=== PATIENT | male | born 1985 | race Caucasian/White ===

== ENCOUNTER → 2016-07-02 | Day surgery (SDC) | payer SELFPAY ==
[~2016-07-02] VITALS: Ht 182.9 cm; Wt 117.0 kg
[~2016-07-02] MED LIST: *MEPERIDINE 25 MG INJ VIAL PERIprocedural Use ONLY ONE; ACETAMINOPHEN 1000 MG/100 ML VIAL IV ONE; CEPH-459 PO; DO NOT ADM ANY ANTICOAGULANT DRUGS XX PRN; FAMOTIDINE 20 MG/2 ML VIAL ONE; HYDROmorphone HCL PF 2 MG/ML VIAL ONE; INSULIN HUMAN REGULAR 1,000 UNITS/10 ML VIAL SQ PRN; LACTATED RINGER'S 1000 ML INJ 1,000 ML IV ONE; LACTATED RINGER'S 1000 ML IV SCH; METH40TA PO; METOPROLOL TARTRATE 25 MG TAB PO PRN; MIDAZOLAM HCL 2 MG/2 ML VIAL ONE; NEOMYCIN/POLYMYXIN/BACITRACIN OINT 15 GM TUBE ONE; NEOSTIGMINE 3 MG/3 ML SYR IV ONE; ONDANSETRON HCL 4 MG/2 ML VIAL IV PUSH ONE; ONDANSETRON HCL 4 MG/2 ML VIAL IV PUSH PRN; OXYC30TA3 PO; PERC5TAB12 PO; PROPOFOL 200 MG/20 ML AMP IV ONE; SODIUM CHLORID 0.9% 500 ML IV SCH; XANA2TAB2 PO; fentaNYL CITRATE 250 MCG/5 ML AMP ONE; oxyCODONE/ACETAMINOPHEN 5 MG/325 MG TAB PO PRN
[2016-07-02 09:57] VITALS: BP 163/113; PULSE 121; RESP 16; TEMP 98; O2SAT 97
--- NOTE | 2016-07-02 10:53 | PD ---
HPI Chief Complaint: Complaint Time Seen by Provider: 10:08 Travel History International Travel<30 days: No Contact w/Intl Traveler<30days: No Traveled to known affect area: No History of Present Illness HPI This patient has had lifelong neurological difficulty. He says as an infant he had a circumcision that didn't work out quite right. He calls it a partial circumcision. The bottom half of his glans is been covered over with skin and scar tissue for life and he has always had a struggle to urinate properly. However in the last one year it is becoming progressively worse. He has not been able to urinate today other than a couple of drops. He feels like his bladder is full and distended and causing him pain. He had an appointment at [address] Horowitz, urologist but instead he came here at about 10:15 AM said he couldn't wait any longer. Symptoms severity is moderate. No alleviating factors. Duration is chronic but worse over the last couple of days PFSH Past Medical History Hx Anticoagulant Therapy: No Diabetes: No Diminished Hearing: No Musculoskeletal: Yes (BACK INJURY, CHRONIC BACK PAIN) Seizures: Yes (X 1 EPISODE; PER PT, DRUG-INDUCED) Tetanus Vaccination: > 5 Years Influenza Vaccination: No Social History Alcohol Use: No (DENIES) Tobacco Use: No (E-CIG DAILY) Substance Use: Yes (METHADONE SINCE 2013; HX OF OXYCONTIN ABUSE) Allergies-Medications (Allergen,Severity, Reaction): Coded Allergies: No Known Allergies (Verified , 07/02/16) Reported Meds & Prescriptions Reported Meds & Active Scripts Active Reported Methadone (Methadone HCl) 40 Mg Tab 40 Mg PO DAILY Review of Systems General / Constitutional: No: Fever Eyes: No: Visual changes HENT: No: Headaches Cardiovascular: No: Chest Pain or Discomfort Respiratory: No: Shortness of Breath Gastrointestinal: Positive: Abdominal Pain Genitourinary: Positive: Decreased Urinary Output, No: Dysuria Musculoskeletal: No: Pain Skin: No Rash Neurologic: No: Weakness Psychiatric: No: Depression Endocrine: No: Polydipsia Hematologic/Lymphatic: No: Easy Bruising Physical Exam Narrative GENERAL: Well-nourished, well-developed patient in no apparent distress. SKIN: Warm and dry. HEAD: Atraumatic. Normocephalic. EYES: Pupils equal and round. No scleral icterus. No injection or drainage. ENT: No nasal bleeding or discharge. Mucous membranes pink and moist. NECK: Trachea midline. No JVD. CARDIOVASCULAR: Regular rate and rhythm. No murmur appreciated. RESPIRATORY: No accessory muscle use. Clear to auscultation. Breath sounds equal bilaterally. GASTROINTESTINAL: Abdomen soft, suprapubic tenderness and distention noted. Hepatic and splenic margins not palpable. MUSCULOSKELETAL: No obvious deformities. No clubbing. No cyanosis. No edema. NEUROLOGICAL: Awake and alert. No obvious cranial nerve deficits. Motor grossly within normal limits. Normal speech. PSYCHIATRIC: Appropriate mood and affect; insight and judgment normal. : Patient has abnormality at the glans. The bottom half is covered over in skin/scar tissue. His urethra looks entirely closed. I don't even see an opening there at all. I could not even pass the tip of a Q-tip. Data Data Last Documented VS Vital Signs Date Time Temp Pulse Resp B/P Pulse Ox O2 Delivery O2 Flow Rate FiO2 07/02/16 11:08 88 16 159/88 97 Room Air 07/02/16 09:57 98.0 Orders Admit Order (Ed Use Only) (07/02/16 11:23) [facility] Medical Decision Making Medical Screen Exam Complete: Yes Emergency Medical Condition: Yes Medical Record Reviewed: Yes Differential Diagnosis Urethral stricture, scar tissue, meatus abnormality Narrative Course I have reviewed the patient's electronic medical record. I did a bedside bladder scan which reveals 645 cc of urine in the bladder. I discussed with Dr. Horowitz but he says since the patient has never seen him and did not come the office but instead went to the emergency room that I should use the on-call urologist. I placed a call to Dr. Dennison to discuss. Dr. Dennison will do the procedure in the operating room to open up the urethra and allow him to urinate. He recommends sending him to same day surgery now. He plans to let him go home after the procedure. I reviewed with the patient was agreeable. I'm planning on having the patient's parents drive him there as he is young healthy stable in general and does not need ambulance transport Diagnosis Primary Impression: Urethral stricture Qualified Code: N99.114 - Postprocedural male urethral stricture Additional Impression: Acute urinary retention Additional Instructions: Go to same day surgery directly from here Disposition: 70 TRANSFER TO OTHER FACILITY Condition: Stable Chato Mendiola MD Jul 02, 2016 10:53
[2016-07-02 11:08] VITALS: BP 159/88; PULSE 88; RESP 16; O2SAT 97
--- NOTE | 2016-07-02 12:39 | HHI.HP ---
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 Patient reports that over the past year is voiding has become progressively more difficult and recently was only able to dribble small amounts of urine at a time. He presented to the emergency room complaining of inability to urinate and with lower abdominal pain. A bladder scan was performed that demonstrated greater than 600 cc of urine within the bladder. A urology consult was placed for further management. Patient denies any other past urologic history. He denies recurrent urinary tract infections or gross hematuria. Review of Systems Constitutional: DENIES: Fever, Night Sweats Endocrine: DENIES: Heat/cold intolerance Eyes: DENIES: Blurred vision Respiratory: DENIES: Cough Cardiovascular: DENIES: Chest pain Gastrointestinal: COMPLAINS OF: Abdominal pain (lower abdomen) Musculoskeletal: DENIES: Joint pain Hematologic/lymphatic: DENIES: Bruising Neurologic: DENIES: Headache Other Remainder of systems review negative Past Family Social History Past Medical History Chronic back pain OxyContin abuse Drug induced seizure episode 1 Past Surgical History Denies Reported Medications Refer to EMR Allergies: Coded Allergies: No Known Allergies (Verified , 07/02/16) Active Ordered Medications Refer to EMR Family History Reviewed and noncontributory Social History Denies tobacco or alcohol abuse Uses E cigarettes On methadone program for history of OxyContin abuse Physical Exam Vital Signs Vital Signs Date Time Temp Pulse Resp B/P Pulse Ox O2 Delivery O2 Flow Rate FiO2 07/02/16 11:08 88 16 159/88 97 Room Air 07/02/16 09:57 98.0 121 16 163/113 97 Physical Exam GENERAL: This is a well-nourished, well-developed patient, in no apparent distress. SKIN: No rashes, ecchymoses or lesions. Cool and dry. HEAD: Atraumatic. Normocephalic. No temporal or scalp tenderness. EYES: Pupils equal round and reactive. Extraocular motions intact. No scleral icterus. No injection or drainage. ENT: Nose without bleeding, purulent drainage or septal hematoma. Throat without erythema, tonsillar hypertrophy or exudate. Uvula midline. Airway patent. NECK: Trachea midline. No JVD or lymphadenopathy. Supple, nontender, no meningeal signs. CARDIOVASCULAR: Regular rate and rhythm without murmurs, gallops, or rubs. RESPIRATORY: Clear to auscultation. Breath sounds equal bilaterally. No wheezes , rales, or rhonchi. GASTROINTESTINAL: Lower abdomen distended consistent with a full bladder. : Meatus scarred over. MUSCULOSKELETAL: Extremities without clubbing, cyanosis, or edema. No joint tenderness, effusion, or edema noted. No calf tenderness. Negative Homans sign bilaterally. NEUROLOGICAL: Awake and alert. Cranial nerves II through XII intact. Motor and sensory grossly within normal limits. Five out of 5 muscle strength in all muscle groups. Normal speech. Assessment and Plan Assessment and Plan Urologic impression: Urinary retention related to scarred an obstructing meatus. Plan: #1 keep patient nothing by mouth #2 bring the patient to the OR suite today for a meatoplasty and cystoscopic evaluation Andrea Dennison MD Jul 02, 2016 12:39
[2016-07-02 17:10] VITALS: PULSE 88; RESP 16; TEMP 98.6; O2SAT 97
[2016-07-02 17:15] VITALS: BP 138/68
--- NOTE | 2016-07-04 04:58 | MP ---
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 Apparently the patient had a circumcision performed as an it never healed up properly. The patient reports having problems urinating his whole life, and over the past year symptoms became worse. He presented to the emergency room in acute urinary retention. PREOPERATIVE DIAGNOSIS Penile deformity / urinary retention. POSTOPERATIVE DIAGNOSIS: Penile deformity / urinary retention. ATTENDING PHYSICIAN Dr. Dennison ANESTHESIA: General. PROCEDURE PERFORMED: Phalloplasty and release of glandular adhesions. COMPLICATIONS None. ESTIMATED BLOOD LOSS: Minimal SPECIMENS None. OPERATIVE PROCEDURE IN DETAIL The patient was brought to the operating room suite and placed supine on the OR table. He was then placed under general anesthesia. He was then prepped and draped in normal sterile fashion. After an appropriate time-out was undertaken I proceeded with careful inspection of the phallus. The meatus was obscured by penile skin. I sharply dissected the penile skin away from the glans to free up the glans. Adhesions were meticulously taken down. I then needed to cut away some of the scarred tissue and reconstruct the phallus. I ended up creating relaxing incisions and Heineke-Mikulicz type closure patterns to obtain adequate length of the penile skin without any undue tension. Once this was all accomplished, I then was easily able to advance a 16-[place] 10 cc [place] catheter with evacuation of brianna urine. The patient had a dressing which was comprised of Xeroform followed by Kerlix, followed by Coban wrap. The Washington catheter was then placed to gravity drainage. The patient tolerated the procedures without complications and was transferred to the PACU in satisfactory condition. Andrea Dennison MD BPS/LEEANN /3:40 PM /4:22 AM
== END | disposition home or self-care (01) ==
LOC: PHED 09:51 → HSDC 11:25
PROVIDERS: ATTEND Urology
DX: N99.114 Postprocedural urethral stricture, male, unspecified (principal); R33.9 Retention of urine, unspecified; F11.10 Opioid abuse, uncomplicated; R10.30 Lower abdominal pain, unspecified; Q55.69 Other congenital malformation of penis
CPT/HCPCS: 00920; 54162; 99284; J0131; J1170; J2175; J2250; J2405; J2710; J3010; J7120